=== PATIENT | male | born 2000 | race Caucasian/White ===

== ENCOUNTER 2024-02-29 03:14 | Emergency (ER) | payer SELFPAY ==
[2024-02-29] MEDS ORDERED: SODIUM BICARBONATE 8.4% INJ 50ML SYRINGE ONE (03:15)
[2024-02-29] MEDS ORDERED: EPINEPHrine 1MG/10ML SYRINGE 1.5IN ONE (03:15)
[2024-02-29] MEDS ORDERED: DEXTROSE 50% 50ML SYRINGE ONE (03:15)
== END 2024-02-29 06:35 | disposition home or self-care (01) ==
LOC: EDBD 03:14 → M ED 03:14
DX: I46.9 Cardiac arrest, cause unspecified (principal); T75.1XXA Unspecified effects of drowning and nonfatal submersion, initial encounter
CPT/HCPCS: 99283; J0171